=== PATIENT | male | born 1985 | race Caucasian/White ===

== ENCOUNTER 2025-03-27 18:50 | Emergency (ER) | payer OTHER ==
[2025-03-27] MEDS ORDERED: ACETAMINOPHEN 500 MG TAB ONE (19:27)
--- NOTE | 2025-03-27 19:57 | RAD REPORT ---
EXAMINATION: Elbow Right 3 View CLINICAL INDICATION: Male, 39 years old. PAIN RIGHT COMPARISON: No prior exam. FINDINGS: No acute fracture. No malalignment/dislocation. No significant focal degenerative change. Other: n/a IMPRESSION: No acute osseous abnormality.
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
[2025-03-27] MEDS ORDERED: IBUPROFEN 400 MG TAB ONE (20:48)
[2025-03-27 21:19] VITALS: BP 115/101; TEMP 97.2; O2SAT 100
== END 2025-03-27 21:08 | disposition home or self-care (01) ==
LOC: ER 18:50
DX: M25.521 Pain in right elbow (principal); R51.9 Headache, unspecified; H53.8 Other visual disturbances; V49.40XA Driver injured in collision with unspecified motor vehicles in traffic accident, initial encounter
CPT/HCPCS: 70450; 99283